=== PATIENT | female | born 1985 | race Caucasian/White ===

== ENCOUNTER 2016-12-03 01:05 | Emergency (ER) | payer SELFPAY ==
[~2016-12-03] VITALS: Ht 175.3 cm; Wt 89.7 kg
[~2016-12-03 01:05] MED LIST: BUPRENORPHINE HC8 MG SL; LEVETIRACETAM500 MG; ZOFRAN4 MG PO
[2016-12-03 02:07] LABS: HEMATOCRIT 36.9 % (36.0-46.0); MCH 31.1 PG (29.0-34.0); MCHC 33.9 G/DL (30.0-36.0); MCV 91.8 FL (83-99); MEAN PLAT.VOLUME 10.5 uM^3 (9.5-12.4); PLATELET COUNT 246 K/uL (156-360); RBC DIS.WIDTH-CV 11.9 % (11.8-14.6); RBC DIS.WIDTH-SD 40.6 % (39-53); RED BLOOD COUNT 4.02 M/uL (3.80-5.20)
[2016-12-03 02:22] LABS: CHLORIDE 106 mEq/L (99-109); SODIUM 140 mEq/L (136-147)
[2016-12-03 02:24] LABS: GLUCOSE 109 mg/dL (70-99)
[2016-12-03 02:26] LABS: ANION GAP 8 MEQ/L (2-14); TOTAL BILIRUBIN 0.4 mg/dL (0.0-1.0)
[2016-12-03 02:28] LABS: ALKALINE PHOSPHATASE 59 IU/L (3-129); GFR ESTIMATE (CALCULATED) 56 mL/min/
[2016-12-03 02:29] LABS: UREA NITROGEN (BUN) 13 mg/dL (9-23)
[2016-12-03 02:37] LABS: QUANTITATIVE HCG < 4.0 MIU/ML
[2016-12-03 05:50] VITALS: BP 108/62
[2016-12-03 06:33] LABS: ADD MIUA? YES; BILIRUBIN NEGATIVE; BLOOD NEGATIVE; COLOR YELLOW ((YELLOW)); GLUCOSE (STRIP) NEGATIVE; KETONES NEGATIVE; LEUKOCYTES MODERATE; NITRITE NEGATIVE; PROTEIN (STRIP) 30; SPECIFIC GRAVITY 1.027 (1.000-1.030); UROBILINOGEN 0.2 MG/DL (0.2-1.0)
[2016-12-03 06:42] LABS: BACTERIA NONE SEEN /HPF; EPITHELIAL CELLS 1+ /HPF; MUCUS TRACE /LPF; RED BLOOD CELLS 0-5 /HPF (0-5); UCUL ADDED? NO; WHITE BLOOD CELLS 0-5 /HPF (0-5)
== END 2016-12-03 05:51 | disposition home or self-care (01) ==
LOC: EME 01:05
DX: R10.9 Unspecified abdominal pain (principal); Z88.0 Allergy status to penicillin; F17.200 Nicotine dependence, unspecified, uncomplicated
CPT/HCPCS: 74176; 80053; 81003; 84702; 85027; 99281; 99284